=== PATIENT | female | born 1955 | race African-American/Black ===

== ENCOUNTER 2019-03-05 17:45 | Emergency (ER) | payer MEDICAID ==
[~2019-03-05] VITALS: Ht 172.7 cm; Wt 91.0 kg
[2019-03-05 18:00] VITALS: BP 134/56
[2019-03-05] MEDS ORDERED: ACETAMINOPHEN 325MG TABLET PO STA (18:33)
[2019-03-05] MEDS ORDERED: SODIUM CHLORIDE 0.9% 1,000 ML IV ONE (18:33)
[2019-03-05 19:01] LABS: BASOPHILS % 0.5 % (0.0-2.0); EOSINOPHILS % 1.5 % (0.0-5.0); HEMATOCRIT. 34.4 % (36.0-48.0); HEMOGLOBIN. 11.5 g/dL (12.0-16.0); LYMPHOCYTES % 21.8 % (20.0-50.0); MEAN CORPUSCULAR HEMOGLOBIN 31.4 pg (28.0-32.0); MEAN CORPUSCULAR VOLUME 94.1 fL (81.0-99.0); MEAN PLATELET VOLUME 8.4 fl (7.4-10.4); MONOCYTES % 8.6 % (2.0-8.0); NEUTROPHILS % 67.6 % (40.0-76.0); PLATELET 204 x1000/uL (130-400); RED BLOOD CELL COUNT 3.66 mill/uL (4.2-5.4); RED CELL DISTRIBUTION WIDTH 13.3 % (11.6-14.6)
[2019-03-05 19:09] LABS: CHLORIDE 107 mEq/L (98-107)
[2019-03-05] MEDS ORDERED: AMOXICILLIN/POTASSIUM CLAVULANATE 875/125MG TAB PO ONE (19:30)
== END 2019-03-05 19:57 | disposition home or self-care (01) ==
LOC: ER 17:45
DX: R68.84 Jaw pain (principal); I10 Essential (primary) hypertension; E78.00 Pure hypercholesterolemia, unspecified; Z85.9 Personal history of malignant neoplasm, unspecified
CPT/HCPCS: 36415; 80053; 85025; 99283; J7030; Z7610

== ENCOUNTER 2022-02-19 10:33 | Emergency (ER) | payer OTHER, MEDICAID ==
[~2022-02-19] VITALS: Ht 165.1 cm; Wt 91.0 kg
[2022-02-19] MEDS ORDERED: SODIUM CHLORIDE 0.9% 1,000 ML IV ONE (11:30)
[2022-02-19 11:50] LABS: BASOPHILS % 0.9 % (0.0-2.0); HEMATOCRIT. 42.8 % (36.0-48.0); HEMOGLOBIN. 13.9 g/dL (12.0-16.0); LYMPHOCYTES % 13.4 % (20.0-50.0); MEAN CORPUSCULAR HEMOGLOBIN 28.6 pg (28.0-32.0); MEAN CORPUSCULAR VOLUME 88.2 fL (81.0-99.0); MONOCYTES % 8.3 % (2.0-8.0); NEUTROPHILS % 75.4 % (40.0-76.0); PLATELET 213 x1000/uL (130-400); RED BLOOD CELL COUNT 4.86 mill/uL (4.2-5.4); RED CELL DISTRIBUTION WIDTH 13.8 % (11.6-14.6)
[2022-02-19 12:00] LABS: CHLORIDE 108 mEq/L (98-107)
[2022-02-19 13:20] VITALS: BP 147/78
== END 2022-02-19 13:23 | disposition home or self-care (01) ==
LOC: ER 10:33
DX: R00.2 Palpitations (principal); R05.9 Cough, unspecified; E78.00 Pure hypercholesterolemia, unspecified; I10 Essential (primary) hypertension; Z85.9 Personal history of malignant neoplasm, unspecified
CPT/HCPCS: 36415; 71045; 80053; 83735; 83880; 84484; 85025; 85379; 93005; 96360; 99285; J7030

== ENCOUNTER 2022-10-04 08:37 | Emergency (ER) | payer MEDICAID, OTHER ==
[~2022-10-04] VITALS: Ht 172.7 cm; Wt 81.0 kg
[2022-10-04 08:42] VITALS: TEMP 98.5; O2SAT 100
[2022-10-04] MEDS ORDERED: IBUPROFEN 600MG TABLET PO STA (10:25)
[2022-10-04 10:40] VITALS: BP 159/65; PULSE 71; RESP 16
[2022-10-04] MEDS ORDERED: IBUP-2029 PO (11:55)
== END 2022-10-04 12:13 | disposition home or self-care (01) ==
LOC: ER 08:37
DX: M19.041 Primary osteoarthritis, right hand (principal); I49.9 Cardiac arrhythmia, unspecified; I10 Essential (primary) hypertension; E78.00 Pure hypercholesterolemia, unspecified; Z98.890 Other specified postprocedural states
CPT/HCPCS: 36415; 84484; 93005; 99284

== ENCOUNTER 2022-10-26 15:32 | Emergency (ER) | payer MEDICARE, MEDICAID ==
[~2022-10-26] VITALS: Ht 172.7 cm; Wt 107.0 kg
[~2022-10-26 15:32] MED LIST: IBUP-2029 PO
[2022-10-26 15:57] VITALS: BP 159/58; PULSE 56; RESP 16; TEMP 98.6; O2SAT 99
[2022-10-26] MEDS ORDERED: ACETAMINOPHEN 325MG TABLET PO ONE (16:15)
[2022-10-26 16:35] LABS: BASOPHILS % 0.7 % (0.0-2.0); EOSINOPHILS % 2.4 % (0.0-5.0); HEMATOCRIT. 37.6 % (36.0-48.0); HEMOGLOBIN. 12.3 g/dL (12.0-16.0); LYMPHOCYTES % 23.2 % (20.0-50.0); MEAN CORPUSCULAR HEMOGLOBIN 28.2 pg (28.0-32.0); MEAN CORPUSCULAR VOLUME 86.2 fL (81.0-99.0); MONOCYTES % 11.3 % (2.0-8.0); NEUTROPHILS % 62.4 % (40.0-76.0); PLATELET 286 x1000/uL (130-400); RED BLOOD CELL COUNT 4.36 mill/uL (4.2-5.4); RED CELL DISTRIBUTION WIDTH 13.2 % (11.6-14.6)
[2022-10-26 16:46] LABS: CHLORIDE 108 mEq/L (98-107)
[2022-10-26] MEDS ORDERED: TOPUD PO (17:38)
== END 2022-10-26 18:11 | disposition home or self-care (01) ==
LOC: ER 15:32
DX: M79.605 Pain in left leg (principal); M79.10 Myalgia, unspecified site; E78.00 Pure hypercholesterolemia, unspecified; I10 Essential (primary) hypertension; Z90.710 Acquired absence of both cervix and uterus; Z85.9 Personal history of malignant neoplasm, unspecified
CPT/HCPCS: 36415; 71045; 80053; 83880; 84484; 85025; 93970; 99284

== ENCOUNTER 2023-02-04 01:45 | Emergency (ER) | payer BC, MEDICAID ==
[~2023-02-04] VITALS: Ht 172.7 cm; Wt 91.0 kg
[~2023-02-04 01:45] MED LIST changes: +TOPUD PO
[2023-02-04 01:48] VITALS: BP 162/79; O2SAT 98
[2023-02-04] MEDS ORDERED: ACETAMINOPHEN 325MG TABLET PO STA (01:52)
[2023-02-04] MEDS ORDERED: SODIUM CHLORIDE 0.9% 1,000 ML IV ONE (02:00)
[2023-02-04 03:05] LABS: BASOPHILS % 0.5 % (0.0-2.0); EOSINOPHILS % 1.3 % (0.0-5.0); HEMATOCRIT. 35.6 % (36.0-48.0); HEMOGLOBIN. 11.8 g/dL (12.0-16.0); LYMPHOCYTES % 13.7 % (20.0-50.0); MEAN CORPUSCULAR HGB CONC 33.1 g/dL (31.0-37.0); MEAN CORPUSCULAR VOLUME 84.5 fL (81.0-99.0); MEAN PLATELET VOLUME 8.4 fl (7.4-10.4); MONOCYTES % 11.9 % (2.0-8.0); NEUTROPHILS % 72.6 % (40.0-76.0); PLATELET 360 x1000/uL (130-400); RED BLOOD CELL COUNT 4.21 mill/uL (4.2-5.4); RED CELL DISTRIBUTION WIDTH 13.9 % (11.6-14.6); WHITE BLOOD COUNT 8.2 x1000/uL (4.5-11.0)
[2023-02-04 03:13] LABS: CHLORIDE 106 mEq/L (98-107); INDEX HEMOLYSI 1 (1-3); INDEX ICTERIC 1 (1-4); INDEX LIPEMIC 1 (1-3); POTASSIUM 4.5 mEq/L (3.5-5.1); SODIUM 139 mEq/L (136-145)
[2023-02-04 03:22] LABS: ALANINE AMINOTRANSFERASE 30 IU/L (13-61); ALBUMIN 3.3 g/dL (3.4-5.0); ASPARTATE AMINOTRANSFERASE 18 IU/L (15-37); BILIRUBIN TOTAL 0.9 mg/dL (0.1-1.0); CALCIUM 10.7 mg/dL (8.5-10.1); CARBON DIOXIDE 31 mEq/L (21-32); ETHANOL BLOOD < 10 mg/dL (<10); GLUCOSE 113 mg/dL (70-105); UREA NITROGEN BLOOD 27 mg/dL (7-21)
[2023-02-04 03:27] LABS: CLARITY URINE CLOUDY (CLEAR); COLOR URINE YELLOW (YELLOW); GLUCOSE URINE NEGATIVE (NEGATIVE); KETONES URINE NEGATIVE (NEGATIVE); LEUKOCYTE ESTERASE URINE 1+ (NEGATIVE); NITRITE URINE NEGATIVE (NEGATIVE); OCCULT BLOOD URINE NEGATIVE (NEGATIVE); PH URINE 6.5 (4.5-8.0); PROTEIN URINE NEGATIVE (NEGATIVE); SPECIFIC GRAVITY URINE 1.018 (1.005-1.030)
[2023-02-04 03:29] LABS: YEAST URINE NONE SEEN
[2023-02-04 03:37] LABS: *AMPHETAMINES SCREEN URINE NEGATIVE (NEGATIVE); *BARBITURATES SCREEN URINE NEGATIVE (NEGATIVE); *BENZODIAZEPINES SCREEN URINE NEGATIVE (NEGATIVE); *COCAINE SCREEN URINE NEGATIVE (NEGATIVE); CANNABINOID URINE SCREEN NEGATIVE (NEGATIVE); ECSTASY MDMA SCREEN URINE NEGATIVE (NEGATIVE); METHADONE URINE SCREEN NEGATIVE (NEGATIVE); OPIATES URINE SCREEN NEGATIVE (NEGATIVE); PHENCYCLIDINE URINE SCREEN NEGATIVE (NEGATIVE)
[2023-02-04] MEDS ORDERED: ACET-2708 MT (03:37)
[2023-02-04 04:01] VITALS: PULSE 75; RESP 14; TEMP 98.7
[2023-02-04 05:05] LABS: SQUAMOUS EPITHELIAL CELL URINE FEW /lpf (RARE/1+)
[2023-02-04 05:08] LABS: BACTERIA URINE NONE SEEN
[2023-02-04 05:09] LABS: RBC URINE 0-2 /hpf (0-2)
== END 2023-02-04 04:04 | disposition home or self-care (01) ==
LOC: ER 01:47
DX: M79.10 Myalgia, unspecified site (principal); M25.552 Pain in left hip; I10 Essential (primary) hypertension; E78.00 Pure hypercholesterolemia, unspecified; Z90.710 Acquired absence of both cervix and uterus
CPT/HCPCS: 80053; 80305; 81003; 80320; 83605; 83690; 85025; 36415; 73502; 96360; 99284; J7030; G0480

== ENCOUNTER 2023-03-09 11:33 | Emergency (ER) | payer BC, MEDICAID ==
[~2023-03-09] VITALS: Ht 167.6 cm; Wt 90.0 kg
[~2023-03-09 11:33] MED LIST changes: +ACET-2708 MT
[2023-03-09 11:52] VITALS: O2SAT 98
[2023-03-09] MEDS ORDERED: LIDOCAINE 5% PATCH TOP STA (12:28)
[2023-03-09] MEDS ORDERED: ACETAMINOPHEN 325MG TABLET PO ONE (12:30)
[2023-03-09] MEDS ORDERED: IBUPROFEN 400MG TABLET PO ONE (12:30)
[2023-03-09] MEDS ORDERED: LIDO1ADH23 TP (15:01)
[2023-03-09 17:29] VITALS: BP 141/67; PULSE 85; RESP 16; TEMP 98.9
== END 2023-03-09 17:30 | disposition home or self-care (01) ==
LOC: ER 11:57
DX: M25.552 Pain in left hip (principal); E78.00 Pure hypercholesterolemia, unspecified; I10 Essential (primary) hypertension; Z85.9 Personal history of malignant neoplasm, unspecified; W18.39XA Other fall on same level, initial encounter; Y93.89 Activity, other specified; Y92.89 Other specified places as the place of occurrence of the external cause; Y99.8 Other external cause status
CPT/HCPCS: 73502; 73552; 99284